=== PATIENT | female | born 1980 | race Caucasian/White ===

== ENCOUNTER → 2018-07-02 | Outpatient (REF) | payer OTHER | LOC: M SFHCLERA 17:27 | DX: R30.0 Dysuria (principal) ==

== ENCOUNTER → 2018-11-05 | Outpatient (CLI) | payer OTHER ==
--- NOTE | 2018-11-05 17:18 | REP ---
Focused right breast sonography: History: Right breast pain. The order states that there are two nodules noted in the nipple area. The patient reports palpable areas at 12 to 1 o'clock and in the retroareolar region at four to five o'clock. No available comparison imaging. Findings: At 12 o'clock, approximately 3.5 cm from the nipple there is a 0.7 x 0.6 x 0.6 cm hypoechoic area with a well defined back wall and enhanced through transmission compatible with a small fibroadenoma. In the retroareolar region there are two cysts seen measuring 0.7 and 0.3 cm in greatest diameter. These have a benign appearance. At 1 o'clock approximately 7.7 cm from the nipple there is a 0.5 x 0.4 x 0.3 cm cyst. At 4 o'clock, approximately 3.9 cm from the nipple there is a 0.7 x 0.5 x 0.5 cm hypoechoic area with somewhat angular margins and mild acoustic shadowing. This has somewhat suspicious features. There are heterogeneous fibroglandular background echotexture features as well. Impression: BIRADS category four suspicious findings. At 4 o'clock in the right breast there is a angular 7 x 5 x 5 mm hypoechoic area with acoustic shadowing. Ultrasound-guided needle biopsy is recommended with clip placement and post clip placement mammography . Also noted are benign cysts and a small fibroadenoma. Electronically Signed by Adam Dwyer MD 11/05/2018 05:55 P
== END ==
LOC: M RAD 13:26
PROVIDERS: ATTEND Obstetrics & Gynecology
DX: N64.4 Mastodynia (principal); D24.1 Benign neoplasm of right breast; N63.10 Unspecified lump in the right breast, unspecified quadrant; N60.11 Diffuse cystic mastopathy of right breast